=== PATIENT | male | born 1950 | race Caucasian/White ===

== ENCOUNTER 2017-09-29 14:28 | Outpatient (CLI) | payer MEDICARE | END 2017-09-29 14:29 | disposition home or self-care (01) | LOC: LABBT 14:28 | PROVIDERS: ATTEND Specialist | DX: Z01.818 Encounter for other preprocedural examination (principal); N18.6 End stage renal disease ==

== ENCOUNTER 2017-10-10 07:20 | Day surgery (SDC) | payer MEDICARE ==
--- NOTE | 2017-09-26 15:33 | HP ---
HISTORY OF PRESENT ILLNESS: Keven Segundo is a 67-year-old male patient who lives in [facility] dergoing dialysis Friday, Friday, and Friday at [facility] followed by Dr. Jacobson. He was fo llowed by Dr. Mandeep Suresh, [facility]. Patient had a coronary artery stent placed in 2015. He has the appointment to see Dr. Suresh on 10/28/2017. Patient denies any cardiac symptomatology. He has chronic dyspnea related to his chronic obstructive pulmonary disease, but no chest pain or pressu re or any dyspnea. Patient is undergoing dialysis at [facility], Friday, Friday, and Friday ap proximately 1:30 p.m. utilizing right-arm dialysis graft that I placed on 11/12/2016. I have been as ked to see him regarding placement of a peritoneal dialysis catheter. He has been undergoing his per itoneal dialysis education, [facility] under direction of Sharonda. Patient has a pannus and we will plan to place a presternal catheter probably upper abdomen exit site. He understa nds the risks and benefits, consents for laparoscopic peritoneal dialysis catheter placement. ALLERGIES: None. TOBACCO: None for more than a year. ALCOHOL: None. MEDICATIONS: Lantus insulin 50 units at bedtime, Lyrica 200 mg 3 times a day, Zetia 10 mg once a day , furosemide 40 mg once daily, metoprolol 100 mg once a day, atorvastatin 20 mg once a day, losartan potassium 50 mg once a day, Norvasc 5 mg once a day, ergocalciferol once a week, insulin three times a day with meals. PAST MEDICAL HISTORY: COPD, he is on home oxygen, uses inhalers one to three times a day; insulin-de pendent diabetes mellitus, type 2; neuropathy; coronary artery disease, status post coronary artery s tent placement a year ago; end-stage renal disease on maintenance dialysis at [facility] in [facility], followed Dr. Jacobson. PAST SURGICAL HISTORY: Patient had pleurodesis or decortication after pneumonia in 2008, coronary st ents in 10/2016, removal of HD catheter and placement of right arm dialysis graft on 11/12/2016. Rem oval of a hemodialysis catheter in the office on 12/31/2016. REVIEW OF SYSTEMS: Ten-point noncontributory. PHYSICAL EXAMINATION: VITAL SIGNS: 242 pounds, 69 inches, 35 BMI, 123/43, 74, 98.2 degrees. HEAD, EYES, EARS, NOSE, AND THROAT: Unremarkable. LUNGS: Clear to auscultation. No wheezing. CARDIAC: Regular rate and rhythm without murmur or gallop. ABDOMEN: Obese, slight protuberant, small pannus. EXTREMITIES: Unremarkable. Right upper arm dialysis graft, good bruit. On standing, he was examine d. Testicles are normal. Groins without hernia, umbilical is without hernia. ASSESSMENT AND PLAN: 1. End-stage renal disease, desires peritoneal dialysis. We will plan laparoscopic peritoneal dialy sis catheter after cardiac clearance for general anesthesia. I have a call in to Dr. Suresh and will rachael it this discussion. Risks and benefits of peritoneal dialysis discussed. Mechanical malfunction, la paroscopic revision possibility discussed, he consents. 2. Chronic obstructive pulmonary disease, preoperative nebulizer treatment surgery and on home oxygen. 3. Diabetes mellitus, insulin-dependent. 4. Hypertension. 5. End-stage renal disease, dialysis Friday, Friday, and Friday at [facility].
[2017-09-29 14:47] VITALS: BMI 35.1
[2017-10-10 08:32] LABS: #Basophils 0.1 thou/uL (0.0-0.2); #Eosinphils 0.2 thou/uL (0.0-0.7); #Lymphocytes 1.6 thou/uL (1.20-3.40); #Monocytes 0.7 thou/uL (0.11-0.59); #Neutrophils 3.1 thou/uL (1.40-6.50); %Basophils 1.1 % (0.0-1.0); %Eosinophils 3.8 % (0.0-10.0); %Lymphocytes 28.1 % (21.0-51.0); %Monocytes 11.8 % (0.0-10.0); Mean Platelet Volume 9.2 fL (7.4-10.4); Red Blood Cell (RBC) Count 3.83 mill/uL (4.70-6.10); White Blood Cell (WBC) Count 5.7 thou/uL (4.8-10.8)
[2017-10-10] MEDS ORDERED: CEFAZOLIN/Water 2 GM/20 ML SYRINGE ONE (08:37)
[2017-10-10 08:48] LABS: Anion Gap 15 mmol/L (10-20); BUN (Urea Nitrogen) 49 mg/dL (8.4-25.7); Calc. Creatinine Clearance 18 mL/min (70-130); Calcium 8.8 mg/dL (7.8-10.44); Carbon Dioxide 23 mmol/L (23-31); Chloride 104 mmol/L (98-107); Estimated GFR-MDRD 9
[2017-10-10] MEDS ORDERED: Bupivacaine/Epinephrine 0.25% 30 ML VIAL ONE (09:04)
[2017-10-10] MEDS ORDERED: Heparin 10,000 UNITS/1 ML VIAL ONE (09:05)
[2017-10-10] MEDS ORDERED: Fentanyl 100 MCG/2 ML VIAL ONE (09:12)
--- NOTE | 2017-10-10 12:08 | OP ---
DATE OF SERVICE: 10/10/2017 PREOPERATIVE DIAGNOSES: End-stage renal disease, functioning dialysis graft right arm, desires perit bender dialysis access, obesity. POSTOPERATIVE DIAGNOSES: End-stage renal disease, functioning dialysis graft right arm, desires jovanni toneal dialysis access, obesity. PROCEDURE: Laparoscopic peritoneal dialysis catheter, placement of double cuffed pigtail, laparoscop ic omentopexy. SURGEON: Tariq Obregon M.D. ANESTHESIA: General. Local 0.25% Marcaine with epinephrine, 30 mL DESCRIPTION OF PROCEDURE: The patient was taken to the operating room where under general anesthesia , abdomen was clipped of hair, prepared with chloraprep, draped in routine fashion. Local anesthetic was infiltrated into skin and subcutaneous tissue about the operative site. Left lateral subcostal incision made and pneumoperitoneum to 15 mmHg obtained with the Veress needle, replacing it with a 5 port and video laparoscope inserted. Right lateral subcostal incision was made and a 5 port placed. Laparoscopic peritoneal dialysis catheter inserted by making an incision about the level of the umbi licus in the left lower quadrant and another counter incision just superior and medial to this and an 8 mm port placed through the more paramedial incision and under laparoscopic visualization, placing the subcutaneous tissue caudally through the rectus sheath penetrating the abdominal cavity inferiorl y and draped in the double cuffed pigtail peritoneal dialysis catheter and towards the pelvis, placin g the internal cuff in the rectus sheath and removed that port. Using the [place] dissector, placed through the planned exit site in the left lower quadrant. The [place] dissector was then placed thr ough this incision up into the counterincision, grasping the catheter and pulled it out the exit site , placed an external cuff beneath this skin exit site and subcutaneous tissue. Subcutaneous tissue w as approximated with 3-0 Monocryl, skin with subdermal 4-0 Monocryl. Omentum almost reached into the pelvis; thus, the omentopexy undertaken with 0 Vicryl suture, GraNee needle placing into the upper a bdomen with transfascial fixation suture with a GraNee needle. Irrigant and pneumoperitoneum evacuat ed. All instruments removed and all skin incisions approximated with interrupted subdermal 4-0 Monoc ryl. Catheter flushed with heparinized saline solution. Sterile dressings applied.
[2017-10-10] MEDS ORDERED: Glycopyrrolate 0.2 MG/ML 5 ML SYRINGE ONE (15:00)
[2017-10-10] MEDS ORDERED: Lidocaine 1% PF 5 ML VIAL ONE (15:00)
[2017-10-10] MEDS ORDERED: ePHEDrine/0.9% NaCl/PF SYRINGE 50 mg/10 ml ONE (15:00)
[2017-10-10] MEDS ORDERED: Ondansetron HCl/PF 4 MG/2 ML Vial ONE (15:00)
[2017-10-10] MEDS ORDERED: Propofol 200 MG/20 ML VIAL ONE (15:00)
== END 2017-10-10 11:49 | disposition home or self-care (01) ==
LOC: SDC 07:20
PROVIDERS: ATTEND Specialist
PROC: 0WHG43Z Insertion of Infusion Device into Peritoneal Cavity, Percutaneous Endoscopic Approach (ICD-10-PCS; principal; 2017-10-10)
PROC: 0DQU4ZZ Repair Omentum, Percutaneous Endoscopic Approach (ICD-10-PCS; 2017-10-10)
DX: N18.6 End stage renal disease (principal); E11.22 Type 2 diabetes mellitus with diabetic chronic kidney disease; J44.9 Chronic obstructive pulmonary disease, unspecified; E11.40 Type 2 diabetes mellitus with diabetic neuropathy, unspecified; I25.10 Atherosclerotic heart disease of native coronary artery without angina pectoris; E66.9 Obesity, unspecified; Z79.4 Long term (current) use of insulin; Z68.35 Body mass index [BMI] 35.0-35.9, adult; Z79.899 Other long term (current) drug therapy; Z95.5 Presence of coronary angioplasty implant and graft; Z99.2 Dependence on renal dialysis
CPT/HCPCS: 36415; 80048; 85025; 93005; 93010; 94640; J0131; J1644; J2001; J2405; J2704; J3010; J7620

== ENCOUNTER 2017-10-30 10:15 | Outpatient (CLI) | payer MEDICARE | END 2017-10-30 10:16 | disposition home or self-care (01) | LOC: BICRAD 10:15 | PROVIDERS: ATTEND Internal Medicine Nephrology | DX: T83.098A Other mechanical complication of other urinary catheter, initial encounter (principal) | CPT/HCPCS: 74000 ==

== ENCOUNTER → 2017-10-31 | Day surgery (SDC) | payer MEDICARE ==
[2017-10-30 15:00] VITALS: BMI 35.4
--- NOTE | 2017-10-30 16:34 | HP ---
HISTORY OF PRESENT ILLNESS: Keven Segundo is a 67-year-old male patient dialyzing at [facility] on Friday, Friday, and Friday at noon. He saw Dr. Jacobson, he had laparoscopic peritoneal di alysis catheter with omentopexy that I placed on 10/10/2017, his catheter flushed well and drained we ll initially, but then it failed to function properly and x-rays revealed the PD catheter to be in th e upper pelvis. Patient presents now for evaluation. He has a functional fistula that he is dialyzi ng noon, Friday, Friday, and Friday. Plan is for laparoscopic revision of peritoneal dialysis cat heter as an outpatient tomorrow under general anesthesia. He has been seen by a machine brusher, Dr. Orion Suresh at [facility] and was cleared for anesthesia, last surgery on 10/10/2017. He is status post right upper arm dialysis graft placed on 11/12/2016, it is using for dialysis access. MEDICATIONS: Insulin subcu at bedtime, Lyrica 200 mg 3 times a day, Zetia 10 mg once a day, furosemi de 40 mg once a day, metoprolol 100 mg once a day, atorvastatin 20 mg at bedtime, losartan potassium 50 mg daily, Norvasc 5 mg daily, ergocalciferol, insulin lispro subcu 3 times a day with meals 14 uni ts. PAST MEDICAL HISTORY: COPD, diabetes mellitus, end-stage renal disease on maintenance dialysis , Friday, and Friday noon, neuropathy, history of coronary artery disease. TOBACCO: None. ALCOHOL: None. PHYSICAL EXAMINATION: VITAL SIGNS: 251 pounds, 69 inches, 37 BMI, 108/39, 77, 98.4 degrees. HEAD, EARS, EYES, NOSE, AND THROAT: Unremarkable. LUNGS: Clear to auscultation. CARDIAC: Regular rate and rhythm without murmur or gallop. ABDOMEN: Soft, nontender, and peritoneal dialysis catheter in left lower quadrant. There was tensio n between the Velcro straps on the waist meadows and one was loosened to prevent tension. He was info rmed to keep tension off the exit site. EXTREMITIES: Unremarkable. ASSESSMENT: Dysfunctional peritoneal dialysis catheter. PLAN: Laparoscopic reevaluation and probable placement of laparoscopic sling sutured to hold it in p lace in the pelvis.
[~2017-10-31] MED LIST: Bupivacaine/Epinephrine 0.25% 30 ML VIAL ONE; CEFAZOLIN/Water 2 GM/20 ML SYRINGE ONE; Fentanyl 100 MCG/2 ML VIAL ONE; HYDROcodone/Acetaminophen 5/325 mg Tablet ONE; Heparin 10,000 UNITS/1 ML VIAL ONE; Lidocaine 2% PF 5 ML VIAL ONE; traMADol HCl 50 MG TAB ONE
--- NOTE | 2017-10-31 13:17 | OP ---
DATE OF PROCEDURE: 10/31/2017 PREOPERATIVE DIAGNOSES: End-stage renal disease, obesity, dysfunctional peritoneal dialysis catheter . POSTOPERATIVE DIAGNOSES: End-stage renal disease, obesity, dysfunctional peritoneal dialysis cathete r with peritoneal dialysis catheter, surrounded with a fat from the sigmoid colon and enveloped in fa t in the left pelvis. PROCEDURES PERFORMED: Laparoscopic revision of peritoneal dialysis catheter with sling suture of 0 E thibond placed holding the peritoneal dialysis catheter more towards the midline, slightly right pelv is. SURGEON: Dr. Tariq Obregon ANESTHESIA: General. Local 0.5% Marcaine with epinephrine 30 mL mixed with 2% Xylocaine, 10 mL. DESCRIPTION OF PROCEDURE: The patient taken to the operating room where under general anesthesia, ab domen and peritoneal dialysis catheter were prepared with ChloraPrep, draped in routine fashion. Loc al anesthetic infiltrated in skin and subcutaneous tissue about the operative site. Bilateral subcos gabrielle incisions made through the old laparoscopic scars and pneumoperitoneum to 15 mmHg obtained with t he Veress needle, replacing it with a 5 port. Video laparoscope inserted. Contralateral port placed under laparoscopic visualization. There was some fatty tissue from the sigmoid colon enveloping the peritoneal dialysis catheter above the side hole section. Photographs were made. This fatty tissue was taken down. The sling suture of 0 Ethibond placed using the GraNee needle with transabdominal f ixation suture technique to position the catheter in the midline, slightly right pelvis. Catheter wa s flushed and cleared of fibrin debris and then heparinized saline solution 1000 units heparin per mL and 10 mL flushed the catheter and left in place. Pneumoperitoneum evacuated. All instruments raj tray and all skin incisions approximated with interrupted subdermal 4-0 Monocryl and DermaGlue applied . The patient tolerated the procedure well.
== END ==
LOC: SDC 08:19
PROVIDERS: ATTEND Specialist
PROC: 0JWT33Z Revision of Infusion Device in Trunk Subcutaneous Tissue and Fascia, Percutaneous Approach (ICD-10-PCS; principal; 2017-10-31)
DX: T85.691A Other mechanical complication of intraperitoneal dialysis catheter, initial encounter (principal); E66.9 Obesity, unspecified; E11.22 Type 2 diabetes mellitus with diabetic chronic kidney disease; N18.6 End stage renal disease; I25.10 Atherosclerotic heart disease of native coronary artery without angina pectoris; J44.9 Chronic obstructive pulmonary disease, unspecified; Z68.35 Body mass index [BMI] 35.0-35.9, adult; Z79.4 Long term (current) use of insulin; Z79.02 Long term (current) use of antithrombotics/antiplatelets; Z79.82 Long term (current) use of aspirin; Z79.899 Other long term (current) drug therapy; Z99.2 Dependence on renal dialysis; Z98.890 Other specified postprocedural states
CPT/HCPCS: J1644; J2001; J3010

== ENCOUNTER 2017-11-24 09:35 | Day surgery (SDC) | payer MEDICARE ==
[2017-11-21 13:26] VITALS: BMI 33.2
--- NOTE | 2017-11-21 14:41 | HP ---
HISTORY OF PRESENT ILLNESS: Keven Segundo is a 67-year-old male patient, end-stage renal dise ase with a functioning right upper arm graft that was placed on 11/12/2016. He dialyzes Friday, , and Friday at [facility] and followed Dr. Jacobson. The patient had a peritoneal dialysi s catheter placed laparoscopically with omentopexy 10/10/2017, it was flushing well, but it would not drain. X-ray revealed the catheter to be in the upper pelvis. Patient underwent laparoscopic evalu ation revealing the catheter to be in fairly good position in the pelvis surrounded with fat from the sigmoid colon and developed fat in the left pelvis. Thus, this was repositioned to the right pelvis with a nonabsorbable saline transabdominal fixation suture. This laparoscopic outpatient procedure was performed 10/31/2017. Postoperatively, the patient was hospitalized at [facility] be cause of abdominal pain, found on peritoneal aspirate to have gram negative rods and currently on ora l antibiotics, Augmentin daily. The catheter also will not drain well. I have been asked to see him regarding removal of this catheter. Patient has a functioning right arm graft. Plan at this time i s to remove his peritoneal dialysis catheter and under IV sedation, local anesthesia next week. He u nderstands the risks and benefits and consents. Currently, he is on Cipro 500 mg a day, amoxicillin clavulanic acid 500 mg once a day. MEDICATIONS: Insulin subcu at bedtime, Lyrica 200 mg 3 times a day, Zetia 10 mg once a day, furosemi de 40 mg a day, metoprolol 100 mg a day, atorvastatin 20 mg at bedtime, losartan 50 mg daily, Norvasc 5 mg a day, ergocalciferol daily, insulin lispro subcu 3 times a day with meals 14 units. PAST MEDICAL HISTORY: COPD, obesity, diabetes mellitus, end-stage renal disease on maintenance dialy sis Friday, Friday, and Friday noon, history of neuropathy, history of coronary artery disease. TOBACCO: None. ALCOHOL: None. REVIEW OF SYSTEMS: Noncontributory. PHYSICAL EXAMINATION: VITAL SIGNS: 239 pounds, 69 inches, 136/55, 85, 98.6 degrees. LUNGS: Clear to auscultation. CARDIAC: Regular rate and rhythm without murmur or gallop. ABDOMEN: Soft, obese, nontender. Peritoneal dialysis catheter, left lower quadrant. EXTREMITIES: Unremarkable, good thrill and bruit right upper arm graft. ASSESSMENT AND PLAN: Dysfunctional peritoneal dialysis catheter with history of peritonitis. This w as treated at [facility]. The patient's abdomen is currently soft and nontender. He is without p ain. Because of the repeatedly dysfunctional peritoneal dialysis catheter and despite laparoscopic r evision, we cannot get it to function correctly probably due to his obesity and pelvic fat. We will remove the peritoneal dialysis catheter under IV sedation, local anesthesia and he will continue to d o hemodialysis using his right upper arm dialysis graft. We will plan this as an outpatient next laura payne. He understands the risks and benefits and consents.
[2017-11-24] MEDS ORDERED: Piperacillin/Tazobactam 3.375 GM in Sodium Chloride 0.9% 100 ML IVPB SCH (10:30)
[2017-11-24 10:44] LABS: #Eosinphils 0.2 thou/uL (0.0-0.7); #Lymphocytes 0.9 thou/uL (1.20-3.40); #Monocytes 0.4 thou/uL (0.11-0.59); #Neutrophils 4.2 thou/uL (1.40-6.50); %Basophils 0.9 % (0.0-1.0); %Eosinophils 2.7 % (0.0-10.0); %Lymphocytes 15.5 % (21.0-51.0); %Monocytes 7.5 % (0.0-10.0); %Neutrophils 73.4 % (42.0-75.0); Hemoglobin 9.7 g/dL (14.0-18.0); Mean Corpuscular HGB CONC 31.6 g/dL (32.0-36.0); Mean Corpuscular Hemoglobin 28.6 pg (27.0-31.0); Mean Corpuscular Volume 90.7 fl (80.0-94.0); Mean Platelet Volume 9.4 fL (7.4-10.4); Platelet Count 148 thou/uL (130-400); RBC Distribution Width 17.8 % (11.5-14.5); Red Blood Cell (RBC) Count 3.38 mill/uL (4.70-6.10); White Blood Cell (WBC) Count 5.7 thou/uL (4.8-10.8)
[2017-11-24 11:03] LABS: Anion Gap 15 mmol/L (10-20); BUN (Urea Nitrogen) 46 mg/dL (8.4-25.7); Calc. Creatinine Clearance 18 mL/min (70-130); Calcium 9.1 mg/dL (7.8-10.44); Carbon Dioxide 20 mmol/L (23-31); Chloride 103 mmol/L (98-107); Estimated GFR-MDRD 10; Glucose 239 mg/dL (80-115); Potassium 5.4 mmol/L (3.5-5.1); Sodium 133 mmol/L (136-145)
[2017-11-24] MEDS ORDERED: Bupivacaine/Epinephrine 0.25% 30 ML VIAL ONE (11:13)
[2017-11-24] MEDS ORDERED: Fentanyl 100 MCG/2 ML VIAL ONE (11:33)
[2017-11-24] MEDS ORDERED: Propofol 200 MG/20 ML VIAL ONE (13:39)
[2017-11-24] MEDS ORDERED: Lidocaine 1% PF 5 ML VIAL ONE (13:39)
[2017-11-24] MEDS ORDERED: Ondansetron HCl/PF 4 MG/2 ML Vial ONE (13:39)
--- NOTE | 2017-11-24 16:28 | OP ---
PREOPERATIVE DIAGNOSES: End-stage renal disease, dysfunctional peritoneal dialysis catheter infected and will not drain, status post recent revision with laparoscopic suture. POSTOPERATIVE DIAGNOSES: End-stage renal disease, dysfunctional peritoneal dialysis catheter infecte d and will not drain, status post recent revision with laparoscopic suture. PROCEDURE: Removal of peritoneal dialysis catheter. SURGEON: Dr. Tariq Obregon. ANESTHESIA: Intravenous sedation and local 0.25% Marcaine with epinephrine, 30 mL, mixed with 2% Xyl ocaine, 10 mL. DESCRIPTION OF PROCEDURE: The patient was taken to the operating room where under intravenous sedati on, abdomen was clipped of hair, prepared with ChloraPrep, draped in routine fashion. Local anesthet ic infiltrated into skin and subcutaneous tissue about the operative site. A double cuffed pigtail p eritoneal dialysis catheter removed, removing the 2 cuffs and the catheters, counter incision require d due to catheter fracture. The entire catheter and cuffs were retrieved and removed. The counter i ncisions closed with 4-0 Monocryl. The exit site was packed with gauze dressing. Patient tolerated the procedure well.
== END 2017-11-24 13:14 | disposition home or self-care (01) ==
LOC: SDC 09:35
PROVIDERS: ATTEND Specialist
PROC: 0WPG03Z Removal of Infusion Device from Peritoneal Cavity, Open Approach (ICD-10-PCS; principal; 2017-11-24)
DX: T85.611A Breakdown (mechanical) of intraperitoneal dialysis catheter, initial encounter (principal); E11.22 Type 2 diabetes mellitus with diabetic chronic kidney disease; N18.6 End stage renal disease; J44.9 Chronic obstructive pulmonary disease, unspecified; Z79.4 Long term (current) use of insulin; Z79.899 Other long term (current) drug therapy; Z98.890 Other specified postprocedural states; Z99.2 Dependence on renal dialysis
CPT/HCPCS: 36415; 80048; 85025; J2543; J3010; J7050